=== PATIENT | male | born 1950 | race Caucasian/White ===

== ENCOUNTER 2018-03-11 15:05 | Emergency (ER) | payer OTHER ==
[~2018-03-11] VITALS: Ht 177.8 cm; Wt 75.7 kg
[~2018-03-11 15:05] MED LIST: ASPIR 8181 M1 PO; Azor 10/20 mg PO; BENICAR20 MG PO; Ecotrin PO; Effient PO; FISH OIL 1,2001 EAC4 PO; Fish Oil PO; LIPITOR80 MG PO; LOPRESSOR25 MG PO; Lipitor PO; Lopressor PO; NORCO 5/3251 TABLET PO; PROCHLORPERAZIN10 MG PO; TYLENOL EXTRA500 MG PO; ZUPLENZ8 MG PO
[2018-03-11] MEDS ORDERED: KEFLEX500 MG PO (16:45)
[2018-03-11] MEDS ORDERED: PERCOCET 5/31 TABLET PO (16:50)
[2018-03-11] MEDS ORDERED: MOTRIN800 MG PO (16:50)
[2018-03-11 17:14] VITALS: BP 169/91
== END 2018-03-11 17:15 | disposition home or self-care (01) ==
LOC: EME 15:05
DX: S67.193A Crushing injury of left middle finger, initial encounter (principal); S62.623B Displaced fracture of middle phalanx of left middle finger, initial encounter for open fracture; W23.0XXA Caught, crushed, jammed, or pinched between moving objects, initial encounter; Z23 Encounter for immunization; I10 Essential (primary) hypertension; Z85.828 Personal history of other malignant neoplasm of skin; F17.200 Nicotine dependence, unspecified, uncomplicated
CPT/HCPCS: 73140; 99281; 99284; S0020

== ENCOUNTER 2018-03-12 19:00 | Emergency (ER) | payer OTHER ==
[~2018-03-12] VITALS: Ht 177.8 cm; Wt 77.2 kg
[~2018-03-12 19:00] MED LIST changes: +KEFLEX500 MG PO; +MOTRIN800 MG PO; +PERCOCET 5/31 TABLET PO
[2018-03-12 20:36] VITALS: BP 179/100
== END 2018-03-12 20:36 | disposition home or self-care (01) ==
LOC: EME 19:00 → RME 19:00
DX: Z48.00 Encounter for change or removal of nonsurgical wound dressing (principal); I10 Essential (primary) hypertension; K21.9 Gastro-esophageal reflux disease without esophagitis; I25.2 Old myocardial infarction; F17.200 Nicotine dependence, unspecified, uncomplicated; Z79.82 Long term (current) use of aspirin; Z85.828 Personal history of other malignant neoplasm of skin; Z98.890 Other specified postprocedural states
CPT/HCPCS: 99281; 99283